=== PATIENT | female | born 1985 ===

== ENCOUNTER → 2023-06-12 | Outpatient (CLI) | payer OTHER ==
[2023-06-12 09:17] LABS: Urine WBC None Seen /hpf (0 - 5)
[2023-06-12 09:30] LABS: Urine Bacteria NONE SEEN /hpf (None Seen); Urine Blood Negative /uL (Negative); Urine Clarity Clear (Clear); Urine Protein, UAD Negative (Negative); Urine Specific Gravity 1.002 (1.001-1.035); Urine Urobilinogen Normal (Negative)
[2023-06-12 09:35] LABS: Urine Color Yellow (Yellow)
[2023-06-12 09:56] LABS: Triglycerides 84 mg/dL (< 150)
[2023-06-12 09:57] LABS: LDL Cholesterol 113 mg/dL (< 100)
[2023-06-12 09:58] LABS: Cholesterol 185 mg/dL (< 200); HDL Cholesterol 55 mg/dL (40-59)
== END | disposition home or self-care (01) ==
LOC: LAB 09:04
PROVIDERS: ATTEND Student in an Organized Health Care Education/Training Program
DX: Z00.01 Encounter for general adult medical examination with abnormal findings (principal)
CPT/HCPCS: 36415; 80061; 81001; 82306; 83036